=== PATIENT | female | born 1990 | race Caucasian/White ===

== ENCOUNTER 2017-05-11 15:19 | Emergency (ER) | payer MEDICAID ==
[~2017-05-11] VITALS: Ht 162.6 cm; Wt 62.2 kg
[~2017-05-11 15:19] MED LIST: BENZ1TAB7 PO; BUPR-94 PO; DIVA500T2 PO; RISP1TAB13 PO
[2017-05-11] MEDS ORDERED: ketorolac trometh inj. 60 MG/2 ML VIAL IM ONE (15:50)
[2017-05-11] MEDS ORDERED: IBUP-1986 PO (15:51)
[2017-05-11] MEDS ORDERED: PENI500T2 PO (15:51)
[2017-05-11 16:34] VITALS: BP 145/68
== END 2017-05-11 16:41 | disposition home or self-care (01) ==
LOC: ER 15:20
DX: K08.89 Other specified disorders of teeth and supporting structures (principal); R19.7 Diarrhea, unspecified; F17.200 Nicotine dependence, unspecified, uncomplicated; F12.10 Cannabis abuse, uncomplicated; F15.10 Other stimulant abuse, uncomplicated; F11.10 Opioid abuse, uncomplicated; Z86.19 Personal history of other infectious and parasitic diseases; Z56.0 Unemployment, unspecified; Z59.0 Homelessness; Z60.2 Problems related to living alone; Z91.011 Allergy to milk products; Z79.899 Other long term (current) drug therapy
CPT/HCPCS: 96372; 99283; J1885

== ENCOUNTER 2018-03-30 08:58 | Emergency (ER) | payer MEDICAID ==
[~2018-03-30] VITALS: Ht 162.6 cm; Wt 64.0 kg
[~2018-03-30 08:58] MED LIST changes: +IBUP-1986 PO
[2018-03-30 09:43] VITALS: BP 145/111
== END 2018-03-30 09:47 | disposition home or self-care (01) ==
LOC: ER 09:00
DX: F31.9 Bipolar disorder, unspecified (principal); I10 Essential (primary) hypertension; F15.10 Other stimulant abuse, uncomplicated; F41.9 Anxiety disorder, unspecified; F20.9 Schizophrenia, unspecified; F12.90 Cannabis use, unspecified, uncomplicated; F11.90 Opioid use, unspecified, uncomplicated; Z59.0 Homelessness; Z56.0 Unemployment, unspecified; Z91.011 Allergy to milk products; Z77.118 Contact with and (suspected) exposure to other environmental pollution; Z79.899 Other long term (current) drug therapy
CPT/HCPCS: 99284

== ENCOUNTER 2019-01-31 21:47 | Emergency (ER) | payer MEDICAID ==
[~2019-01-31] VITALS: Ht 162.6 cm; Wt 53.0 kg
[2019-01-31 22:08] VITALS: BP 105/72
== END 2019-01-31 23:31 | disposition home or self-care (01) ==
LOC: ER 21:48
DX: M79.671 Pain in right foot (principal); R04.2 Hemoptysis; F12.90 Cannabis use, unspecified, uncomplicated; F15.90 Other stimulant use, unspecified, uncomplicated; F11.90 Opioid use, unspecified, uncomplicated; Z59.0 Homelessness; Z56.0 Unemployment, unspecified; Z91.011 Allergy to milk products; Z79.899 Other long term (current) drug therapy
CPT/HCPCS: 73630; 99283

== ENCOUNTER 2019-03-27 16:16 | Emergency (ER) | payer MEDICAID ==
[~2019-03-27] VITALS: Ht 167.6 cm; Wt 60.0 kg
[~2019-03-27 16:16] MED LIST changes: +LIDOcaine 1% 30ml preserv. free vial ONE
[2019-03-27] MEDS ORDERED: azithromycin 250mg tablet PO ONE (17:05)
[2019-03-27] MEDS ORDERED: CefTRIAXone 1000mg IM Kit (w/lidocaine diluent) IM ONE (17:05)
[2019-03-27 17:19] LABS: URINE HCG NEGATIVE (NEG)
[2019-03-27 17:25] LABS: CLARITY,URINE SLIGHTLY CLOUDY (Clear); COLOR,URINE YELLOW (Yellow); GLUCOSE, URINE NEGATIVE (Neg); KETONES,URINE TRACE mg/dl (Neg); LEUKOCYTE ESTERASE ,URINE LARGE (Neg); NITRITES, URINE NEGATIVE (Neg); OCCULT BLOOD,URINE NEGATIVE (Neg); PROTEIN,URINE NEGATIVE (Neg); UROBILINOGEN,URINE 0.2 E.U/dL (0.2-1.0)
[2019-03-27 17:28] LABS: UA COLLECTION TYPE VOIDED
[2019-03-27 17:37] LABS: BACTERIA,URINE FEW /HPF (Neg); RBC,URINE 0-2 /HPF (0-2); SQUAMOUS EPITHELIAL CELL,UR MANY /LPF (FEW); WBC,URINE 50-100 /HPF (0-4)
[2019-03-27 17:38] LABS: MUCUS STRANDS FEW /LPF (Neg); RENAL CELLS, URINE FEW /HPF; TRANSITIONAL EPI CELLS,URINE FEW /HPF; TRICHOMONAS,URINE MANY /HPF (NEGATIVE)
[2019-03-27] MEDS ORDERED: METR-159 PO (17:51)
[2019-03-27] MEDS ORDERED: metroNIDAZOLE 500mg tablet PO ONE (17:55)
--- NOTE | 2019-03-27 18:17 | NUR ---
cab called. 20 min eta
[2019-03-27 18:21] VITALS: BP 110/72
[2019-03-28 08:51] LABS: HIV ANTIBODY 1&2 RAPID NON-REACTIVE (Neg)
[2019-03-29 06:14] LABS: RPR Non Reactive (Non Reactive)
== END 2019-03-27 18:08 | disposition home or self-care (01) ==
LOC: ER 16:17
DX: N76.0 Acute vaginitis (principal); J06.9 Acute upper respiratory infection, unspecified; F41.9 Anxiety disorder, unspecified; F31.9 Bipolar disorder, unspecified; F20.9 Schizophrenia, unspecified; F15.90 Other stimulant use, unspecified, uncomplicated; F11.90 Opioid use, unspecified, uncomplicated; F17.210 Nicotine dependence, cigarettes, uncomplicated; F12.90 Cannabis use, unspecified, uncomplicated; Z91.011 Allergy to milk products; Z79.899 Other long term (current) drug therapy; Z79.1 Long term (current) use of non-steroidal anti-inflammatories (NSAID); Z60.2 Problems related to living alone; Z59.0 Homelessness; Z56.0 Unemployment, unspecified; Z86.19 Personal history of other infectious and parasitic diseases
CPT/HCPCS: 36415; 71045; 81001; 81025; 86592; 86703; 87210; 87491; 87591; 96372; 99284; J0696; J2001; J3490

== ENCOUNTER 2023-11-30 23:15 | Emergency (ER) | payer MEDICAID ==
[~2023-11-30] VITALS: Ht 162.6 cm; Wt 109.1 kg
[~2023-11-30 23:15] MED LIST changes: -BENZ1TAB7 PO; +BENZ1TAB93 PO; -LIDOcaine 1% 30ml preserv. free vial ONE
[2023-12-01 01:22] VITALS: BP 125/111; PULSE 89; RESP 16; TEMP 98.3; O2SAT 94
== END 2023-12-01 01:24 | disposition home or self-care (01) ==
LOC: ER 23:15
DX: F19.10 Other psychoactive substance abuse, uncomplicated (principal); F41.9 Anxiety disorder, unspecified; F32.A Depression, unspecified; F12.90 Cannabis use, unspecified, uncomplicated; F15.90 Other stimulant use, unspecified, uncomplicated; F11.90 Opioid use, unspecified, uncomplicated; Z72.89 Other problems related to lifestyle; Z60.2 Problems related to living alone; Z59.00 Homelessness unspecified; Z56.0 Unemployment, unspecified; Z91.011 Allergy to milk products; Z79.899 Other long term (current) drug therapy; Z79.1 Long term (current) use of non-steroidal anti-inflammatories (NSAID)
CPT/HCPCS: 93005; 99283

== ENCOUNTER 2024-10-07 09:35 | Emergency (ER) | payer MEDICAID ==
[~2024-10-07] VITALS: Ht 162.6 cm; Wt 79.8 kg
[~2024-10-07 09:35] MED LIST changes: -BENZ1TAB93 PO; +BENZ1TAB97 PO
[2024-10-07 10:06] VITALS: BP 110/65; PULSE 77; RESP 16; TEMP 97.8; O2SAT 98
--- NOTE | 2024-10-07 10:13 | Physician Documentation ---
History of Present Illness ~ Stated Complaint: VAGINAL BLEEDING Primary Medical Doctor: none HPI 34-year-old female presents to the ED complaining that she believes she saw part of an umbilical cord coming out of her vagina today. States she has had vaginal bleeding has a long history of miscarriages. She does not know her last menstrual period. She states, I just can not keep them in there Day of Onset: Oct 07, 2024 Medication Reconciliation Allergies: Coded Allergies: Milk Containing Products (Dairy) (Verified Adverse Reaction, Unknown, constipation, 11/30/23) Scheduled Benztropine Mesylate* (Cogentin*), 1 MG PO HS, (Reported) Bupropion Hcl (Wellbutrin Xl), 1 TAB PO DAILY, (Reported) Divalproex Sodium (Depakote), 1 TABLET PO BID, (Reported) Divalproex Sodium (Depakote), 1 TABLET PO BID Ibuprofen (Ibuprofen), 1 TAB PO Q8H Risperidone (Risperdal), 1 TAB PO HS, (Reported) Risperidone (Risperdal), 1 TAB PO HS Past Medical History Past Medical History: Hepatitis C, Anxiety, Bipolar, Depression, Schizophrenia Past Surgical History: no surgical history Alcohol Use: Occasionally Drug Use: marijuana, methamphetamine, heroin Lives with: Alone Lives In: Homeless Occupation: unemployed Review of Systems All Other Systems at this time: Reviewed and Negative ROS As stated above in the HPI, otherwise all systems are reviewed and negative. Physical Exam Physical Exam Physical Exam General: Alert, no apparent distress. Respiratory: Lungs clear, no respiratory distress. Cardiovascular: Regular rate and rhythm, no murmurs. Gastrointestinal: Soft, nontender, nondistended. Bowels sounds present. no obivous Neurologic: Oriented x4. Psychiatric: Normal mood and affect. Skin: Normal color, warm and dry. No edema, no ecchymosis. Progress Results/Orders Results/Orders Orders - PONCHO [facility]INGH[facility] MENTAL HEALTH DIRECTOR US OB (10/07/24 10:16) Completed Orders - PONCHO [facility] MENTAL HEALTH DIRECTOR Hcg Serum Qt (10/07/24 10:16) US OB (10/07/24 10:16) Vital Signs 10/07/24 10:06 Temp 97.8 Pulse 77 Resp 16 B/P (MAP) 110/65 Pulse Ox 98 O2 Flow Rate 0 Laboratory Tests Test 10/07/24 11:11 HCG Beta Subunit < 1.0 Departure Disposition: 07 LEFT AWOL/ELOPED Impression: Primary Impression: Vaginal bleeding Referrals: NO PRIMARY CARE PROVIDER (PCP) Education Educated: Patient Educated regarding: diagnosis Signature Scribe Signature: g Attestation: Scribed for Emergency,Department by Poncho Bingham - [facility] . 10/07/24 18:23 PONCHO BINGHAM NP Oct 07, 2024 10:13
--- NOTE | 2024-10-07 11:32 | RADIOLOGY REPORT ---
Technique: Real-time ultrasound images through the pelvis using a transabdominal transducer. Indication: MISCARRIAGE Comparison: None Findings: The uterus measures 6.9 cm. The endometrial stripe measures 1 mm. There are no focal masses. There is no abnormal flow in the endometrium. The bilateral ovaries are nonvisualized. No free fluid seen. Impression: 1. No intrauterine identified. Please correlate with beta HCG levels. 2. Bilateral ovaries nonvisualized.
== END 2024-10-07 15:46 | disposition left against medical advice (07) ==
LOC: ER 09:36
DX: N93.9 Abnormal uterine and vaginal bleeding, unspecified (principal); F31.9 Bipolar disorder, unspecified; F20.9 Schizophrenia, unspecified; F12.90 Cannabis use, unspecified, uncomplicated; F15.90 Other stimulant use, unspecified, uncomplicated; F11.90 Opioid use, unspecified, uncomplicated; F41.9 Anxiety disorder, unspecified; Z88.8 Allergy status to other drugs, medicaments and biological substances; Z79.899 Other long term (current) drug therapy; Z56.0 Unemployment, unspecified; Z59.00 Homelessness unspecified; Z72.89 Other problems related to lifestyle; Z60.2 Problems related to living alone
CPT/HCPCS: 36415; 76801; 84702; 99284